=== PATIENT | male | born 2000 | race Caucasian/White ===

== ENCOUNTER 2023-10-21 08:32 | Emergency (ER) | payer BC ==
[2023-10-21] MEDS ORDERED: Morphine 4 MG/ML VIAL ONE (09:00)
[2023-10-21] MEDS ORDERED: Ondansetron PF 4 MG/2 ML Vial ONE ×2 (09:00→10:17)
[2023-10-21 09:10] LABS: #Basophils 0.03 10x3/uL (0.0-0.2); #Neutrophils 6.77 10x3/uL (1.5-8.4); %Basophils 0.3 % (0.0-2.0); %Lymphocytes 15.3 % (18.0-47.0); %Monocytes 7.9 % (0.0-10.0); %Neutrophils 76.4 % (40.0-75.0); Hematocrit 43.1 % (38.8-50.0); Hemoglobin 14.5 g/dL (13.5-17.5); Mean Corpuscular HGB CONC 33.6 g/dL (32.0-36.0); Mean Corpuscular Hemoglobin 29.2 pg (27.0-33.0); Mean Corpuscular Volume 86.7 fL (81.2-95.1); Mean Platelet Volume 9.8 fL (7.4-10.4); Platelet Count 147 10x3/uL (150-450); RBC Distribution Width 12.7 % (11.5-14.5); Red Blood Cell (RBC) Count 4.97 10x6/uL (4.32-5.72); White Blood Cell (WBC) Count 8.9 10x3/uL (3.5-10.5)
[2023-10-21 09:40] LABS: ALT (SGPT) 20 U/L (8-55); AST (SGOT) 21 U/L (5-34); Albumin 4.9 g/dL (3.5-5.0); Alkaline Phosphatase 52 U/L (40-110); Anion Gap 16 mmol/L (10-20); BUN (Urea Nitrogen) 16 mg/dL (8.9-20.6); Bilirubin, Total 0.8 mg/dL (0.2-1.2); Calc. Creatinine Clearance 0 mL/min (70-130); Calcium 9.9 mg/dL (7.8-10.44); Carbon Dioxide 25 mmol/L (22-29); Chloride 103 mmol/L (98-107); Estimated GFR 100; Globulin 2.5 g/dL (2.4-3.5); Glucose 99 mg/dL (70-105); Lipase 19 U/L (8-78); Protein, Total 7.4 g/dL (6.0-8.3); Sodium 139 mmol/L (136-145)
[2023-10-21] MEDS ORDERED: Piperacillin/Tazobactam 3.375 GM VIAL ONE (09:42)
[2023-10-21] MEDS ORDERED: Bupivacaine/Epinephrine 0.25% 30 ML VIAL ONE (10:02)
[2023-10-21] MEDS ORDERED: PROPOFOL 20 ML ONE (10:15)
[2023-10-21] MEDS ORDERED: fentaNYL 50 mcg/mL 1 mL Vial ONE ×2 (10:16→11:20)
[2023-10-21] MEDS ORDERED: Lidocaine 4% PF 5 ML AMP ONE (10:17)
[2023-10-21] MEDS ORDERED: Dexamethasone 4 mg/ml Vial ONE (10:17)
[2023-10-21] MEDS ORDERED: Midazolam HCl 2 mg/2 ml Vial ONE (10:48)
[2023-10-21] MEDS ORDERED: Iopamidol 370 76% 100 ML VIAL ONE (11:08)
[2023-10-21] MEDS ORDERED: Dexmedetomidine 200 MCG/2 ML VIAL ONE (11:12)
[2023-10-21] MEDS ORDERED: Ketorolac Tromethamine 30 MG (1 mL) VIAL ONE (11:16)
[2023-10-21] MEDS ORDERED: SUGAMMADEX SODIUM 200 MG/2 ML VIAL ONE (11:16)
[2023-10-21] MEDS ORDERED: HYDROcodone/Acetaminophen 5/325 mg Tablet ONE (13:23)
== END 2023-10-21 10:37 | disposition admitted as inpatient to this hospital (09) ==
LOC: CSHERS 08:32
DX: K35.80 Unspecified acute appendicitis (principal); F17.290 Nicotine dependence, other tobacco product, uncomplicated
CPT/HCPCS: 36415; 74177; 80053; 83690; 85025; 88304; 96374; 96375; A4649; J1100; J1885; J2250; J2272; J2405; J2543; J2704; J3010; Q9967